=== PATIENT | male | born 1950 | race Caucasian/White ===

== ENCOUNTER 2017-10-19 10:59 | Inpatient (IN) | payer OTHER ==
[2017-09-20 10:40] VITALS: BMI 44.0
--- NOTE | 2017-09-20 11:08 | PAT Medication Instructions ---
Service Date Sep 20, 2017. Current Home Medication List Ascorbic Acid (Vitamin C), 500 MG PO NOON Aspirin (Aspirin Ec), 650 MG PO PRN [place]-Mgnnunejqeaff-Lcatzipe (Excedrin Extra Strength), 2 TAB PO PRN Atorvastatin (Lipitor), 20 MG PO QPM Cyclobenzaprine Hcl (Flexeril), 10 MG PO PRN Esomeprazole Magnesium (Nexium), 40 MG PO NOON Finasteride (Proscar), 5 MG PO QPM Lisinopril (Zestril), 10 MG PO QPM Multivitamin (Multivitamin), 1 TAB PO QAM Tamsulosin HCl (Tamsulosin HCl), 0.4 MG PO NOON Zolpidem Tartrate (Ambien), 10 MG PO HS PRN for PRN [Votaren Gel ], 1 DOSE TOP PRN Medication Instructions For Your Scheduled Surgery - Check with surgeon for instructions: Aspirin (Aspirin Ec), 650 MG PO PRN Mqpaqvf-Ymqajdihuzfhb-Nvdokbqm (Excedrin Extra Strength), 2 TAB PO PRN - Hold the following medications 24 hours prior to surgery: [Votaren Gel ], 1 DOSE TOP PRN Lisinopril (Zestril), 10 MG PO QPM - Hold the following medications the morning of surgery: Ascorbic Acid (Vitamin C), 500 MG PO NOON Cyclobenzaprine Hcl (Flexeril), 10 MG PO PRN Multivitamin (Multivitamin), 1 TAB PO QAM - Take the following medications the morning of surgery with a sip of water: Tamsulosin HCl (Tamsulosin HCl), 0.4 MG PO NOON Esomeprazole Magnesium (Nexium), 40 MG PO NOON - Take the following medications as scheduled the night before surgery: Finasteride (Proscar), 5 MG PO QPM Zolpidem Tartrate (Ambien), 10 MG PO HS PRN for PRN (if needed) Cyclobenzaprine Hcl (Flexeril), 10 MG PO PRN (if needed) Atorvastatin (Lipitor), 20 MG PO QPM If you have any questions please call us at [phone] or [phone] or [phone]
[2017-09-20 12:00] LABS: BASO % 0.3 %; BASO ABS # 0.02 K/uL (0-0.2); EOS % 4.2 %; EOS ABS # 0.26 K/uL (0-0.5); HEMATOCRIT 41.8 % (42-52); HEMOGLOBIN 14.7 g/dL (14.0-18.0); IG# 0.02 K/uL (0.00-0.02); LYMPH % 16.6 %; LYMPH ABS # 1.02 K/uL (1.2-3.4); MEAN CORPUSCULAR HEMOGLOBIN 34.1 pg (25-34); MEAN CORPUSCULAR HGB CONC 35.2 g/dl (32-36); MEAN PLATELET VOLUME 10.3 fL (7.4-10.4); MONO % 7.5 %; MONO ABS # 0.46 K/uL (0.11-0.59); NEUT % 71.1 %; NEUT ABS # 4.37 K/uL (1.4-6.5); PLATELET COUNT 183 K/uL (130-400); RED CELL DISTRIBUTION WIDTH CV 12.7 % (11.5-14.5); RED CELL DISTRIBUTION WIDTH SD 44.9 fL (36.4-46.3); WHITE BLOOD COUNT 6.15 K/uL (4.8-10.8)
[2017-09-20 12:11] LABS: PTT PATIENT 22.4 SECONDS (21.0-31.0)
--- NOTE | 2017-09-20 12:23 | DIAGNOSTIC IMAGING REPORT ---
TWO VIEW CHEST CLINICAL HISTORY: Preoperative examination. FINDINGS: PA and lateral chest radiographs are obtained. No prior studies are available for comparison at the time of dictation. The PA view is degraded by apical lordotic positioning. The heart is enlarged and there is atherosclerotic calcification of the thoracic aorta. The pulmonary vasculature is noncongested. There is mild left basilar atelectasis. The lungs and pleural spaces are otherwise clear. There is no pneumothorax. The bony thorax appears intact. IMPRESSION: Cardiomegaly with no active disease in the chest. Electronically signed by: Rei Zamora M.D. 09/20/2017 12:22 PM Dictated Date/Time: 09/20/2017 12:21 PM
[2017-09-20 12:29] LABS: HEMOGLOBIN A1C 6.8 % (4.5-5.6)
[2017-09-20 12:51] LABS: CALCIUM 8.9 mg/dl (8.5-10.1); CREATININE 0.87 mg/dl (0.60-1.40); POTASSIUM 4.3 mmol/L (3.5-5.1)
--- NOTE | 2017-10-15 20:16 | HISTORY & PHYSICAL EXAMINATION ---
DATE OF ADMISSION: 10/19/2017 CHIEF COMPLAINT: Bilateral knee pain and discomfort, left side greater than right. HISTORY OF PRESENT ILLNESS: The patient is a 66-year-old gentleman from [place] who presents for treatment of his knees. He has got a long history of bilateral knee pain and discomfort, left side a bit worse than the right. He has been through extensive conservative treatment including injections, which have become less successful over time. He had just been trying to put this off as long as he can. The pain has become more disabling. He would like to begin to have his knees fixed. He has gained weight as a result of his limited activity level. He cannot walk any significant distance anymore or do any recreational activities. PAST MEDICAL HISTORY: 1. Hypertension. 2. Sleep apnea with CPAP machine. 3. Diabetes, but off metformin. 4. Gastroesophageal reflux disease. 5. Hiatal hernia. 6. Obesity with a BMI of 45. 7. Low back pain. 8. BPH. PREVIOUS SURGICAL HISTORY: 1. Vasectomy. 2. Umbilical hernia repair. 3. Inguinal hernia repair. ALLERGIES: None. CURRENT MEDICINES: 1. Lisinopril 10 mg a day. 2. Atorvastatin 20 mg a day. 3. Nexium 20 mg. 4. Tamsulosin 0.4 mg. 5. Ambien for sleep. 6. Finasteride 5 mg a day. 7. Voltaren topical cream. 8. Cyclobenzaprine 10 mg a day for his back. SOCIAL HISTORY: This is a 66-year-old male patient from [place]. He is . Two children. Rare alcohol intake. FAMILY HISTORY: Significant for heart disease, diabetes and skin cancer. REVIEW OF SYSTEMS: Significant for diabetes, but well controlled and off metformin. Denies any current chest pain or shortness of breath. No history of DVT or PE. PHYSICAL EXAMINATION: GENERAL: Reveals a healthy pleasant, large male. HEENT: Benign. NECK: Supple. No lymphadenopathy. LUNGS: Clear to auscultation. HEART: Has regular rate and rhythm. ABDOMEN: Soft, nontender, nondistended. EXTREMITIES: Grossly neurovascularly intact except as follows: Examination of the left knee reveals the patient walks with a little bit of a waddling gait. He has got varus alignment to his left knee. He is tender over the medial joint line. Small knee effusion. Range of motion 5-120. No instability. No pain with hip motion. X-RAYS: X-rays of the left knee reviewed. The patient has advanced left knee DJD. He has got complete loss of his medial joint space. He has got tricompartment disease. He has got subchondral sclerosis. ASSESSMENT: The patient is a 66-year-old male diabetic with advanced bilateral knee pain, DJD, left side more severe than the right. He has failed conservative treatment. He would like to start having his knees fixed. We will start with the left knee. PLAN: We will take him to the operating room and do a left total knee replacement. The risks and benefits of this procedure were explained to the patient, including but not limited to DVT, PE, , infection, neurological injury, vascular injury, bleeding problem, pain, limited range of motion, stiffness, failure to relieve his symptoms, incomplete relief of symptoms, need for further surgery in future, fracture, leg length inequality, nerve palsy, etc. The patient's understands and desires. Informed consent was obtained. We did talk to him about holding his lisinopril the morning of surgery. Bring his CPAP machine to the hospital. He has got cardiac clearance from his digital computer operator, Dr. Connell, as a low risk. As far as discharge plans, he is going to be discharged to home using [facility] program.
[2017-10-19] VITALS (7 sets, daily range): BP systolic 94–145; BP diastolic 60–77; PULSE 51–76; TEMP 36.3–36.8; O2SAT 92–99; Ht 172.7 cm; Wt 133.0 kg
[~2017-10-19] VITALS: Ht 172.7 cm; Wt 133.0 kg
[~2017-10-19 10:59] MED LIST: ACETAMINOPHEN 500 MG TAB PO SCH; ASCO1CAP3 PO; ASPI-391 PO; ASPI325T39 PO; ATOR-22 PO; ATROPINE SULFATE 0.1 MG/ML 5ML SYR IV PRN; BUPIVACAINE 0.25% 30 ML VIAL ONE; BUPIVACAINE 0.5 % 5 MG/1 ML PF 10ML VIAL ONE; BUPIVACAINE LIPOSOME 266 MG, BUPIVACAINE/EPINEPHRINE INJ 50 ML, SODIUM CHLORIDE 0.9% PF... INFIL SCH; CEFAZOLIN 3000MG IV PUSH 22.5 ML IV SCH; CYCL10TA6 PO; EpHEDrine SULFATE INJ 50 MG/ML AMP IV PRN; FAMOTIDINE 20 MG TAB PO SCH; FINA5TAB PO; FLM4 PO; GABAPENTIN 300 MG CAP PO SCH; LACTATED RINGER'S 1000ML 1,000 ML IV SCH; LACTATED RINGER'S 1000ML IV SCH; LISI-461 PO; METOCLOPRAMIDE HCL 10 MG TAB PO SCH; MULT-506 PO; NXM/40 PO; ONDANSETRON INJ 2 MG/ML 2 ML VIAL IV PRN; SCOPOLAMINE 1.5 MG TDSY TD SCH; TRANEXAMIC ACID INJ 1,000 MG x 1 Bag Intra-Op IV SCH; ZOLP10TA PO; [UNRECOGNIZED DRUG - OTHER] TOP
--- NOTE | 2017-10-19 11:22 | History & Physical Bridge Note ---
H&P Re-Evaluation Bridge Note: I have examined the patient, reviewed the History & Physical and in the interval since the performance of the History & Physical I have noted the following changes of clinical significance: No changes noted
[2017-10-19] MEDS ORDERED: BUPIVACAINE LIPOSOME 1/3% 266 MG/20 ML VIAL INFIL ONE (12:07)
[2017-10-19] MEDS ORDERED: BACITRACIN 50000 UNIT VIAL ONE (12:07)
[2017-10-19] MEDS ORDERED: SODIUM CHLORIDE 0.9% PF 50 ML VIAL ONE (12:07)
[2017-10-19] MEDS ORDERED: EpINEphrine INJ 1MG/ML AMP 1 MG/ML AMP ONE (12:08)
[2017-10-19] MEDS ORDERED: BUPIVACAINE 0.25% 30 ML VIAL ONE (12:09)
[2017-10-19] MEDS ORDERED: MIDAZOLAM HCL 1 MG/ML 2ML VIAL ONE (12:21)
[2017-10-19] MEDS ORDERED: PROPOFOL IV EMULSION 10 MG/ML 20 ML VIAL IV ONE (13:33)
[2017-10-19] MEDS ORDERED: VANCOMYCIN HCL 1000MG/20ML VIAL ONE (13:33)
[2017-10-19] MEDS ORDERED: LIDOCAINE HCL 2% 2 ML VIAL (20MG/ML) ONE (13:33)
[2017-10-19] MEDS ORDERED: FENTANYL CITRATE INJ 50 MCG/1 ML 2 ML VIAL ONE (14:43)
--- NOTE | 2017-10-19 14:57 | [facility] Post Operative Brief Note ---
Immediate Operative Summary Operative Date Oct 19, 2017. Pre-Operative Diagnosis Left Knee Advanced Degenerative Joint Disease Post-Operative Diagnosis Left Knee Advanced Degenerative Joint Disease Procedure(s) Performed Left Total Knee Arthroplasty Surgeon Dr. Heart Steam Drier Operator Surgeon(s) JULIA Mason Estimated Blood Loss 50ML Findings Consistent with Post-Op Diagnosis Fluids (cc crystalloids) 2000 cc Specimens A. Left Knee Bone and Tissue Drains None Anesthesia Type MAC Spinal Regional Complication(s) none Disposition Accompanied Pt To Recover: no Disposition: Recovery Room / PACU
[2017-10-19] MEDS ORDERED: GLUCOSE 10 TABS/TUBE PO PRN (15:00)
[2017-10-19] MEDS ORDERED: METOCLOPRAMIDE HCL INJ 5 MG/ML 2 ML VIAL IV PRN (15:00)
[2017-10-19] MEDS ORDERED: DEXTROSE 50% 50 ML SYR IV PRN (15:00)
[2017-10-19] MEDS ORDERED: ONDANSETRON INJ 2 MG/ML 2 ML VIAL IV PRN (15:00)
[2017-10-19] MEDS ORDERED: CYCLOBENZAPRINE HCL 10 MG TAB PO PRN (15:00)
[2017-10-19] MEDS ORDERED: SILVER SULFADIAZINE 1% CR 50 GM JAR EXT PRN (15:00)
[2017-10-19] MEDS ORDERED: TAMSULOSIN HCL 0.4 MG CAP PO PRN (15:00)
[2017-10-19] MEDS ORDERED: BISACODYL 10 MG SUPP PR PRN (15:00)
[2017-10-19] MEDS ORDERED: GLUCAGON FOR INJ 1 MG VIAL SQ PRN (15:00)
[2017-10-19] MEDS ORDERED: ZOLPIDEM TARTRATE 5 MG TAB PO PRN (15:00)
[2017-10-19] MEDS ORDERED: ZOLPIDEM TARTRATE 10 MG TAB PO PRN (15:00)
[2017-10-19] MEDS ORDERED: GLUCOSE 40% GEL 15 GM TUBE PO PRN (15:00)
[2017-10-19] MEDS ORDERED: CEFAZOLIN IV 2,000 MG in DEXTROSE 5% 50ML 50 ML IV SCH (15:00)
[2017-10-19] MEDS ORDERED: ALUMINUM/MAGNESIUM/SIMETH (MAALOX MAX) 30 ML UDC PO PRN (15:00)
[2017-10-19] MEDS ORDERED: NON-FORMULARY MEDICATION (Aspirin-Acetaminophen-Caffeine (Excedrin Extra Strength) 2 TAB) PO SCH (15:00)
[2017-10-19] MEDS ORDERED: MAGNESIUM HYDROXIDE SUSP 30 ML UDC PO PRN (15:00)
[2017-10-19] MEDS ORDERED: DiphenhydrAMINE HCL 50 MG/ML VIAL IV PRN (15:00)
--- NOTE | 2017-10-19 15:20 | DIAGNOSTIC IMAGING REPORT ---
LEFT KNEE 2 VIEWS History: Left total knee arthroplasty. Degenerative arthritis. Postop. FINDINGS: The patient is status post a left total knee arthroplasty. The hardware is intact. No fracture or dislocation. Skin michael are in place. IMPRESSION: Left total knee arthroplasty. No evidence for hardware complication. Electronically signed by: Luis Alberto Cooley M.D. 10/19/2017 3:19 PM Dictated Date/Time: 10/19/2017 3:18 PM
--- NOTE | 2017-10-19 15:56 | Anesthesiology Progress Note ---
Anesthesia Post Op Note Date & Time Oct 19, 2017 at 15:55 Vital Signs Pain Intensity: 0 Vital Signs Past 12 Hours Date Time Temp Pulse Resp B/P (MAP) Pulse Ox O2 Delivery O2 Flow Rate FiO2 10/19/17 15:00 36.6 64 16 103/51 96 Nasal Cannula 3 10/19/17 11:59 96 Room Air 10/19/17 11:56 36.8 76 20 145/77 Notes Mental Status: alert / awake / arousable, participated in evaluation Pt Amnestic to Procedure: Yes Nausea / Vomiting: adequately controlled Pain: adequately controlled Airway Patency, RR, SpO2: stable & adequate BP & HR: stable & adequate Hydration State: stable & adequate Anesthetic Complications: no major complications apparent Anesthetic Complications: Patient denies awareness and states that he would be willing to have subsequent knee replacements done with the same type of anesthesia. Patient currently very satisfied with his anesthetic care.
[2017-10-19] MEDS: CHECK SCOPOLAMINE PATCH PLACEMENT SCH (16:24)
[2017-10-19] MEDS: INSULIN HUMAN REGULAR SC SCH ×2 (17:15→21:25)
[2017-10-19] MEDS: FERROUS GLUCONATE 324 MG TAB PO SCH (17:57)
[2017-10-19] MEDS: KETOROLAC TROMETHAMINE 30 MG/ML VIAL IV. SCH (17:58)
--- NOTE | 2017-10-19 19:39 | OPERATIVE REPORT ---
DATE OF OPERATION: 10/19/2017 SURGEON: Chang Heart MD CONSTRUCTION ASSISTANT: JULIA Robert PREOPERATIVE DIAGNOSIS: Left knee degenerative joint disease. POSTOPERATIVE DIAGNOSIS: Left knee degenerative joint disease. PROCEDURE PERFORMED: Left cemented posterior stabilized total knee arthroplasty. COMPLICATIONS: None. ESTIMATED BLOOD LOSS: 50 mL FLUID REPLACEMENT: 2000 mL crystalloid fluid replacement. ANESTHESIA: Spinal with adductor canal block. DRAINS: None. SPECIMENS: Left knee sent for pathology. OPERATIVE INDICATIONS: The patient is a 66-year-old fairly active gentleman with some morbid obesity who has a long history of bilateral knee pain and discomfort, left side greater than right. He has been through extensive conservative treatment over the years without adequate relief. He elected to proceed with total knee arthroplasty. He is hoping to do his left knee now and do the right one several months later. OPERATIVE FINDINGS: Operative findings were advanced left knee DJD. Extensive grade 4 cjga-aw-[id number] disease of the medial femoral condyle and medial tibial plateau. He had extensive grade 4 changes of the trochlea as well. The lateral compartment was fairly well preserved. OPERATIVE IMPLANTS: Operative implants consisted of: 1. A Biomet Vanguard size 70 left posterior stabilized femoral component. 2. A Biomet size 79 tibial tray. 3. A 10 mm posterior stabilized polyethylene insert. 3. A 34 x 8.5 all poly patella. OPERATIVE PROCEDURE: The patient was taken to the operating room, identified and placed on the operating room table in supine position. All contact areas were appropriately padded. IV antibiotics were provided by anesthesia team. A spinal anesthetic and adductor canal block had been provided in the holding area. Ag catheter was placed in sterile fashion. A left thigh tourniquet was then placed, and left lower extremity was then prepped and draped in the usual sterile fashion. His left leg was elevated and exsanguinated with Esmarch, and tourniquet was placed at 300 mmHg. An anterior approach to the left knee was then performed to a longitudinal incision centered over the patella. Sharp dissection was carried down through subcutaneous tissue down to the level of the extensor mechanism. A medial parapatellar arthrotomy incision was made. Some subperiosteal dissection was carried out medially. I did a pretty extensive release medial due to his varus deformity. The fat pad was resected from beneath the patellar tendon. Lateral patellofemoral ligament was released. Patella was everted, and knee was flexed. The osteophytes were taken off distal femur. The ACL and PCL were then released from the distal femur and the tibia subluxated anteriorly. External tibial alignment jig was then placed in the anterior face of the tibia and adjusted 16 mm medially. Proximal tibial cut was made essentially flush with the very most posterior medial defect of the medial tibial plateau. Some osteophytes were taken off medial and posteromedially. Tibia was sized to a size 79. Attention was then drawn to the femur. The distal femur was entered with a sharp drill bit. Intramedullary canal was suctioned. A left 6-degree valgus cutting guide was placed. Distal femoral cutting block was pinned in place. Distal femoral cut was made to take an additional 3 mm bone off the distal femur. Femur was then sized to a size 70. We did downsize this slightly. The AP cutting block was pinned parallel to the epicondylar axis, which was 5 degrees of external rotation. The anterior cut, anterior chamfer cut, posterior cut, posterior chamfer cuts were made. Box cutting guide was placed and adjusted slightly lateral and then box cut was made. The knee was flexed. The remnants of the medial and lateral menisci were excised. The osteophytes were taken off the posterior aspect of the femur. Trial femoral component was placed. Tibial tray was pinned in maximum external rotation, and the drill and stem punch were used to create defect in the proximal tibia for the tibial tray. The knee was then trialed, and a new 10 mm insert fit most appropriately. Attention was then drawn to the patella. The patella was cleaned of all soft tissues. Patellar thickness measured 26 mm in thickness and was cut down to 15. It was sized to a size 34 patella. Lug holes were drilled for a 34 patella. Lateral osteophyte was removed. Patellar button was placed. Knee was taken through range of motion, and patella tracked nicely with no thumbs test. Attention was then drawn toward placement of permanent components. All trial components were removed. Bone plug was placed in the distal femur to limit blood loss. A double batch of Palacos G cement was mixed. I did add an additional gram of vancomycin due to his diabetes and morbid obesity. A size 70 left posterior stabilized femoral component, size 79 tibial tray, 10 mm posterior stabilized polyethylene insert, and a 34 x 8.5 all poly patella were then cemented in place. Knee was brought out into full extension until cement hardened. A final cement check was then performed. Pericapsular tissues were injected with a total of 100 mL of a combination of 20 mL of Exparel, 30 mL of normal saline, 50 mL of 0.25% Marcaine with epinephrine. The patient did receive 1 g of tranexamic acid. The tourniquet was then let down for a tourniquet time of 64 minutes. Hemostasis was assured with the use of electrocautery. The extensor mechanism was then closed with a combination of #1 PDS suture and #1 Vicryl suture in a [id number] fashion. Extensor mechanism was checked and found to be intact. The subcutaneous tissue was then closed with #2 Dexon suture in a buried interrupted fashion. Skin was closed with skin michael. Leg was then cleaned and dried, and a sterile dressing of Xeroform, 4x4's, sterile cast padding, and Kin bandage were applied. The patient was then transferred to the recovery room in stable condition. The patient tolerated the procedure well with no complications. All needle and sponge counts were correct at the end of the operation. I attest to the content of the Intraoperative Record and any orders documented therein. Any exception s are noted below.
[2017-10-19] MEDS: OXYCODONE HCL IR 5 MG TAB (IMMEDIATE RELEASE) PO PRN (20:07)
[2017-10-19] MEDS: ACETAMINOPHEN 500 MG TAB PO SCH (20:08)
[2017-10-19] MEDS: CEFAZOLIN IV 2,000 MG in SYRINGE 0 ML IV SCH (20:16)
[2017-10-19] MEDS ORDERED: TRANEXAMIC ACID INJ 1,000 MG in SODIUM CHLORIDE 0.9% 100ML 100 ML IV SCH (21:00)
[2017-10-19] MEDS: FINASTERIDE 5 MG TAB PO SCH (21:26)
[2017-10-19] MEDS: SENNA 8.6 MG TAB PO SCH (21:27)
[2017-10-19] MEDS: LISINOPRIL 10 MG TAB PO SCH (21:27)
[2017-10-19] MEDS: ASPIRIN 81 MG ECTAB PO SCH (21:28)
[2017-10-19] MEDS: ATORVASTATIN 20 MG TAB PO SCH (21:29)
[2017-10-19] MEDS: DOCUSATE SODIUM 100 MG CAP PO SCH (21:29)
[2017-10-19] MEDS: TAPENTADOL ER 50 MG TABCR PO SCH (21:33)
[2017-10-19] MEDS: SODIUM CHLORIDE 0.9% 1000ML 1,000 ML IV SCH ×2 (21:39→23:10)
[2017-10-19] MEDS: HYDROmorphone INJ 0.5 MG/0.5 ML SYR IV PRN (21:40)
[2017-10-20] MEDS: CHECK SCOPOLAMINE PATCH PLACEMENT SCH ×4 (00:11→23:48)
[2017-10-20] MEDS: KETOROLAC TROMETHAMINE 30 MG/ML VIAL IV. SCH ×5 (00:11→23:48)
[2017-10-20 04:00] VITALS: BP 114/65; PULSE 74; TEMP 36.7; O2SAT 94
[2017-10-20] MEDS: ACETAMINOPHEN 500 MG TAB PO SCH ×3 (04:00→19:33)
[2017-10-20] MEDS: CEFAZOLIN IV 2,000 MG in SYRINGE 0 ML IV SCH (04:02)
[2017-10-20] MEDS: SODIUM CHLORIDE 0.9% 1000ML 1,000 ML IV SCH ×2 (04:02→10:30)
[2017-10-20] MEDS: OXYCODONE HCL IR 5 MG TAB (IMMEDIATE RELEASE) PO PRN ×4 (04:04→19:34)
[2017-10-20 06:24] LABS: HEMATOCRIT 33.5 % (42-52); HEMOGLOBIN 11.6 g/dL (14.0-18.0); MEAN CELL VOLUME 97.7 fL (80-100); MEAN CORPUSCULAR HEMOGLOBIN 33.8 pg (25-34); MEAN CORPUSCULAR HGB CONC 34.6 g/dl (32-36); MEAN PLATELET VOLUME 9.8 fL (7.4-10.4); PLATELET COUNT 141 K/uL (130-400); WHITE BLOOD COUNT 9.34 K/uL (4.8-10.8)
[2017-10-20 06:51] LABS: CALCIUM 7.8 mg/dl (8.5-10.1); CREATININE 1.01 mg/dl (0.60-1.40)
[2017-10-20 07:39] VITALS: BP 130/71; PULSE 94; TEMP 37.2; O2SAT 94
[2017-10-20] MEDS: HYDROmorphone INJ 0.5 MG/0.5 ML SYR IV PRN (07:41)
[2017-10-20] MEDS: MULTIVITAMIN TAB PO SCH (08:39)
[2017-10-20] MEDS: FERROUS GLUCONATE 324 MG TAB PO SCH ×3 (08:39→18:02)
[2017-10-20] MEDS: DOCUSATE SODIUM 100 MG CAP PO SCH ×2 (08:39→21:18)
[2017-10-20] MEDS: ASPIRIN 81 MG ECTAB PO SCH ×2 (08:40→21:18)
[2017-10-20] MEDS: TAPENTADOL ER 50 MG TABCR PO SCH ×2 (08:47→21:20)
[2017-10-20] MEDS: INSULIN HUMAN REGULAR SC SCH ×4 (08:47→21:26)
[2017-10-20] MEDS ORDERED: PANTOprazole SOD 40 MG TAB PO SCH (09:00)
[2017-10-20] MEDS ORDERED: MULTIVITAMIN TAB PO SCH (09:00)
[2017-10-20 10:55] VITALS: BP 131/78; PULSE 80; O2SAT 92
[2017-10-20] MEDS: ASCORBIC ACID 500 MG TAB PO SCH (11:47)
[2017-10-20] MEDS: TAMSULOSIN HCL 0.4 MG CAP PO SCH (11:47)
[2017-10-20] MEDS: PANTOprazole SOD 40 MG TAB PO SCH (11:47)
--- NOTE | 2017-10-20 12:08 | PROGRESS NOTE ---
DATE: 10/20/2017 SUBJECTIVE: A 66-year-old gentleman postop day 1 from a left knee replacement. He is doing reasonably well. Having a moderate amount of pain but seems to be responding to the pain medicine. No chest pain or shortness of breath. Not feeling dizzy or lightheaded. OBJECTIVE: VITAL SIGNS: Temperature 37.2. Vital signs stable. PHYSICAL EXAMINATION: GENERAL: Reveals a pleasant, middle-aged male. He is sitting up in bed this morning and looks pretty comfortable. EXTREMITIES: Examination of the left leg reveals the dressing to be clean, dry, and intact. He can dorsiflex and plantarflex his foot appropriately. He is neurologically intact. LABORATORY DATA: Hemoglobin 11.6. Hematocrit 33.5. Electrolytes are stable. ASSESSMENT: A 66-year-old gentleman postop day 1 from left knee replacement, doing reasonably well. Pain is reasonably well controlled. He is neurologically intact. PLAN: 1. DVT prophylaxis including thigh-high TEDs, SCDs, and aspirin twice a day. 2. PT/OT. Weight bear as tolerated. Left total knee protocol. 3. Pain control. Doing reasonably well with current pain regimen. 4. Disposition: He is planning to be discharged to home with some home health once adequately recovered.
[2017-10-20 13:41] VITALS: BP 115/66; PULSE 78; TEMP 36.9; O2SAT 90
[2017-10-20 16:19] VITALS: BP 134/70; PULSE 80; TEMP 36.6; O2SAT 90
[2017-10-20] MEDS: LISINOPRIL 10 MG TAB PO SCH (21:44)
[2017-10-20] MEDS: FINASTERIDE 5 MG TAB PO SCH (21:44)
[2017-10-20] MEDS: SENNA 8.6 MG TAB PO SCH (21:44)
[2017-10-20] MEDS: ATORVASTATIN 20 MG TAB PO SCH (21:44)
[2017-10-20] MEDS ORDERED: RXC5 PO (21:53)
[2017-10-20] MEDS ORDERED: ASPI-320 PO (21:53)
[2017-10-20] MEDS ORDERED: ACET-24 PO (21:53)
--- NOTE | 2017-10-20 21:56 | Discharge Instructions ---
Discharge Instructions Date of Service Oct 20, 2017. Admission Reason for Admission: Left Knee Degenerative Joint Disease Discharge Discharge Diagnosis / Problem: Left Knee Replacement Discharge Goals Goal(s): Decrease discomfort, Improve function, Increase independence, Improve disease control, Therapeutic intervention Activity Recommendations Activity Limitations: per Instructions/Follow-up section Weightbearing Status: Left weightbearing . Instructions / Follow-Up Instructions / Follow-Up ACTIVITY RECOMMENDATIONS: Physical Therapy: * You will go to physical therapy three times each week for four to six weeks after your surgery in order to regain your knee range of motion and to retrain your knee to work properly. * It is just as important to make sure you are getting your knee perfectly straight as it is to regain your knee bend. * Taking a pain pill an hour before therapy can help you have a more productive and comfortable therapy session. Home Exercise: * You were shown a series of exercises (heel props, heel slides, etc.) in the hospital. Do these exercises three to four times each day including the exercises you were shown in physical therapy. Walking: * Get up and walk several times each day. For the first four weeks, try not to stand or walk for more than one hour at a time. If you do stand or walk for more than one hour, you will not hurt anything, but your knee and leg will likely swell. * As you feel comfortable, you may change from the walker or crutches to a cane and then to independent walking. MEDICATIONS: New Medicine: * You will likely be taking one or more of these medications: 1. Oxycodone - A quick and shorter-acting pain medication. Take one to two tablets every four to six hours to lessen your pain. 2. Aspirin - Thins your blood to lessen the chance of forming a blood clot. * The most common side effects of pain medicine and iron are nausea and constipation. If nausea or constipation is too much of a problem or if you have any questions about your new medicines or doses, call [facility] at . We will try to help you manage these issues. VERY IMPORTANT TO READ AND REVIEW" Pain: * The immediate post-operative period after knee replacement surgery is often quite painful. * You are given a prescription for pain medicine. You should take it, as directed, when you need it, especially before physical therapy and before going to bed. Pain that interferes with sleep is very common and can last several months. * You will likely need pain medicine for the first four to six weeks. It will not stop all of the pain. The pain will lessen and as you feel better, you may change to milder pain medicine such as Tylenol. * The most common side effects of pain medicine are nausea and constipation, so don't take more than you need. SPECIAL CARE INSTRUCTIONS: TEDs/Elastic Stockings: * The white elastic stockings help limit swelling and prevent blood clots from forming in your legs. The more you wear them, the more they work. * Wear them for six weeks after knee replacement surgery and four weeks after partial knee replacement. Prevention of Infection: * Take antibiotics one hour before any dental cleaning, dental work, urological procedure, gastrointestinal procedure or any invasive surgery in order to prevent your new joint from getting infected. * You may get the antibiotics from the doctor performing the procedure or you may call our office at before and we will call in a prescription to the pharmacy of your choice. Things to Watch For: * Drainage from the incision site that occurs more than one week after your surgery. * Severely increased knee/leg pain or swelling. * Increased redness at the incision site. * Fever above 102 degrees Fahrenheit. * Unusual chest pain or shortness of breath. * Unusual pain or burning with urination. Call [facility] at with any of the above problems or if you have any questions about your medicines or recovery. FOLLOW UP VISIT: Make an appointment to see your doctor for approximately two weeks after surgery for a progress check and staple removal by calling the office at . Current Hospital Diet Patient's current hospital diet: Diabetes Type 2 Diet Discharge Diet Recommended Diet: Diabetes Type 2 Diet Procedures Procedures Performed: Left Total Knee Arthroplasty Pending Studies Studies pending at discharge: no Laboratory Results Hemoglobin A1c Test 09/20/17 11:18 Range/Units Estimated Average Glucose 148 mg/dl Hemoglobin A1c 6.8 H 4.5-5.6 % Medical Emergencies . Who to Call and When: Medical Emergencies: If at any time you feel your situation is an emergency, please call 911 immediately. . Non-Emergent Contact Non-Emergency issues call your: Surgeon . "Provider Documentation" section prepared by Chang Heart. .
[2017-10-20 23:27] VITALS: BP 110/51; PULSE 71; TEMP 36.6; O2SAT 94
[2017-10-21] MEDS: ACETAMINOPHEN 500 MG TAB PO SCH ×2 (04:31→12:08)
[2017-10-21] MEDS: KETOROLAC TROMETHAMINE 30 MG/ML VIAL IV. SCH ×2 (05:36→12:08)
[2017-10-21] MEDS: CHECK SCOPOLAMINE PATCH PLACEMENT SCH (07:29)
[2017-10-21 07:31] VITALS: BP 121/72; PULSE 89; TEMP 36.7; O2SAT 92
[2017-10-21] MEDS: FERROUS GLUCONATE 324 MG TAB PO SCH ×2 (08:47→12:13)
[2017-10-21] MEDS: MULTIVITAMIN TAB PO SCH (08:47)
[2017-10-21] MEDS: INSULIN HUMAN REGULAR SC SCH ×2 (08:50→12:00)
[2017-10-21] MEDS: TAPENTADOL ER 50 MG TABCR PO SCH (08:54)
[2017-10-21] MEDS: OXYCODONE HCL IR 5 MG TAB (IMMEDIATE RELEASE) PO PRN (08:56)
[2017-10-21] MEDS: DOCUSATE SODIUM 100 MG CAP PO SCH (09:36)
[2017-10-21] MEDS: ASPIRIN 81 MG ECTAB PO SCH (09:36)
[2017-10-21] MEDS: PANTOprazole SOD 40 MG TAB PO SCH (12:05)
[2017-10-21] MEDS: TAMSULOSIN HCL 0.4 MG CAP PO SCH (12:05)
[2017-10-21] MEDS: ASCORBIC ACID 500 MG TAB PO SCH (12:05)
--- NOTE | 2017-10-21 12:05 | PROGRESS NOTE ---
DATE: 10/21/2017 SUBJECTIVE: A 66-year-old gentleman postop day #2 from a left knee replacement. He is doing pretty well. Pain is a bit better today. No chest pain or shortness of breath. Not feeling dizzy or lightheaded. OBJECTIVE: VITAL SIGNS: Temperature is 36.7. Vital signs stable. GENERAL: Physical examination reveals a pleasant, middle-aged male. He is sitting up in bed this morning and looks pretty comfortable. EXTREMITIES: Examination of left leg reveals the dressing to be in place with a little bit of bloody drainage. Calf is soft and supple. He can dorsiflex and plantarflex his foot appropriately. He is neurologically intact. ASSESSMENT: A 66-year-old gentleman postop day #2 from a left knee replacement, doing reasonably well. His pain is controlled. He is neurologically intact. PLAN: 1. DVT prophylaxis including thigh-high TEDs, SCDs, and aspirin twice a day. 2. PT/OT. Weight bear as tolerated. Left total knee protocol. 3. Pain control. Doing reasonably well with current pain regimen. 4. Disposition. He is going to be discharged to home. He is going do outpatient therapy after therapy today.
[2017-10-21 12:54] VITALS: BP 121/72; PULSE 89; TEMP 36.7; O2SAT 92
== END 2017-10-21 13:31 | disposition home or self-care (01) | DRG 470 ==
LOC: C.ACU 10:59 → C.3E 15:04 → ENRESERV 15:48
PROVIDERS: ADMIT Orthopaedic Surgery Sports Medicine; ATTEND Orthopaedic Surgery Sports Medicine
PROC: 0SRD0J9 Replacement of Left Knee Joint with Synthetic Substitute, Cemented, Open Approach (ICD-10-PCS; principal; 2017-10-19 13:00)
DX: M17.12 Unilateral primary osteoarthritis, left knee (principal); E66.01 Morbid (severe) obesity due to excess calories; Z68.42 Body mass index [BMI] 45.0-49.9, adult; E11.9 Type 2 diabetes mellitus without complications; I10 Essential (primary) hypertension; K21.9 Gastro-esophageal reflux disease without esophagitis; G47.30 Sleep apnea, unspecified; Z79.82 Long term (current) use of aspirin; Z79.899 Other long term (current) drug therapy; Z83.3 Family history of diabetes mellitus